=== PATIENT | male | born 1965 | race African-American/Black ===

== ENCOUNTER 2021-11-28 14:46 | Emergency (ER) | payer BC ==
[~2021-11-28] VITALS: Ht 177 cm; Wt 74.8 kg
[2021-11-28 15:27] LABS: BILIRUBIN,URINE NEGATIVE (NEGATIVE); CLARITY,URINE CLEAR; COLOR,URINE YELLOW; GLUCOSE, URINE (UA) NEGATIVE (NEGATIVE); KETONES,URINE NEGATIVE (NEGATIVE); LEUKOCYTE ESTERASE ,URINE NEGATIVE (NEGATIVE); NITRITE,URINE NEGATIVE (NEGATIVE); PH,URINE 5.5 (5-9); PROTEIN,URINE NEGATIVE (NEGATIVE)
[2021-11-28] MEDS ORDERED: cefTRIAXone 250 MG/2.5 ML ML IM ONE (15:30)
[2021-11-28] MEDS ORDERED: LIDOCAINE 1% INJ 20 ML VIAL INJ ONE (15:30)
[2021-11-28] MEDS ORDERED: AZITHROMYCIN 250 MG TAB (ZITHROMAX) PO ONE (15:30)
--- NOTE | 2021-11-28 15:38 | ED GU-Male ---
General Chief Complaint: - Reproductive Stated Complaint: UTI SYMPTOMS Nursing Triage Note: pt presents to ed with complaints of burning sensation with urination and an irritated area on penis- "possible scratch." for a couple days. Source: patient Exam Limitations: no limitations History of Present Illness Date Seen by Provider: Nov 28, 2021 Time Seen by Provider: 15:15 Initial Comments Patient is a 56-year-old male who presents to the emergency department today with a chief complaint of burning with urination and a "sore" on his penis. Patient states its been there for about 3 days. He did recently have sex, no condoms. He denies any testicle pain. No abdominal pain, nausea vomiting. No fevers or chills. He initially thought it was a "scratch" on the shaft of his penis just below the foreskin. No abnormal penile discharge. He has been putting a little Vaseline and antibiotic ointment on the area without much relief. All other review of systems reviewed and negative except as stated Timing/Duration: other (3d) Severity/Quality: mild Activities at Onset: none Prior Genitourinary Problems: none Associated Symptoms: dysuria Allergies and Home Medications Allergies Coded Allergies: No Known Drug Allergies (Unverified , 11/28/21) Patient Home Medication List Home Medication List Reviewed: Yes Review of Systems Review of Systems Constitutional: see HPI EENTM: no symptoms reported Respiratory: no symptoms reported Cardiovascular: no symptoms reported Gastrointestinal: no symptoms reported Genitourinary: burning, other ("sore" on penis) Musculoskeletal: no symptoms reported Skin: no symptoms reported All Other Systemes Reviewed Negative Unless Noted: Yes Past Hmmcvsp-Atyamo-Fngcpn Hx Patient Social History Tobacco Use?: No Substance use?: No Alcohol Use?: Yes Alcohol Frequency: Once in a while Pt feels they are or have been: No Past Medical History Surgery/Hospitalization HX: pt presents to ed with complaints of burning sensation with urination and an irritated area on penis- "possible scratch." for a couple days. Physical Exam Vital Signs Vital Signs - First Documented 11/28/21 15:16 Temp 36.6 Pulse 81 Resp 16 B/P (MAP) 156/98 (117) Pulse Ox 98 Capillary Refill : Less Than 3 Seconds Height, Weight, BMI Height: '" Weight: lbs. oz. kg; 23.00 BMI Method: General Appearance: WD/WN, no apparent distress HEENT: PERRL/EOMI Cardiovascular: regular rate, rhythm Respiratory: lungs clear, normal breath sounds, no respiratory distress, no accessory muscle use Male: normal genitalia, other (small round macular lesion under the foreskin volar aspect of the penis just proximal to the glans penis. no blistering or open ulceration noted - does not resemble herpetic lesion. slightly tender to palpation. no urethral discharge. no other lesions noted. no testicular swelling or tenderness.) Extremities: normal range of motion Neurologic/Psychiatric: alert, normal mood/affect, oriented x 3 Skin: normal color, warm/dry Progress/Results/Core Measures Suspected Sepsis SIRS Temperature: Pulse: 81 Respiratory Rate: 16 Blood Pressure 156 /98 Mean: 117 Results/Orders Lab Results Laboratory Tests Test 11/28/21 15:19 Range/Units My Orders Orders - AIDEE FRANCE MD Ua Culture If Indicated (11/28/21 15:22) Neis Dragan Dna Urine Test (11/28/21 15:30) Chlamydia Trachomatis Urine (11/28/21 15:30) Ceftriaxone (Rocephin) (11/28/21 15:30) Vital Signs/I&O 11/28/21 15:16 Temp 36.6 Pulse 81 Resp 16 B/P (MAP) 156/98 (117) Pulse Ox 98 Capillary Refill : Less Than 3 Seconds Blood Pressure Mean: 117 Progress Note : Time: 15:35 Progress Note 56-year-old male with a penile lesion and dysuria. Concern for STI. He has no inguinal lymphadenopathy. Only a single solitary red macular lesion on the volar aspect of the penis adjacent to the glans. Mildly tender to palpation. Could be a syphilitic lesion. Will recommend follow-up with his primary care doctor once he returns home to [place]. I am going to go ahead and treat him for STIs with 250 mg of Rocephin IM as well as 1 g of Zithromax p.o. Encourage safe sex practices. I advised him that we will contact him if his culture results are positive. If he notices any lumps in the groin or fever or new lesions he is instructed to seek further medical care for further treatment. He verbalized understanding. All questions are sought and answered. Departure Impression Primary Impression: Penile lesion Additional Impression: Urethritis Disposition: HOME, SELF-CARE Condition: Stable Departure-Patient Inst. Decision time for Depature: 15:36 Referrals: NO,LOCAL PHYSICIAN (PCP/Family) Primary Care Physician Patient Instructions: Urethritis Add. Discharge Instructions: If you develop any further "sores" or lumps in your groin especially with fevers, abdominal pain and nausea please go to your primary care doctor or seek further medical care for further treatment. You have been treated today with Rocephin which is an antibiotic to treat gonorrhea and azithromycin an antibiotic to treat chlamydia. These test results will be back in 3 or 4 days. We will contact you if you are positive for these infections. You will not need further treatment if these tests are positive. Please consider safe sex practices, always use a condom. Return to the emergency department for any new, concerning or emergent complaints or persistent symptoms. AIDEE FRANCE MD Nov 28, 2021 15:38
[2021-11-28] MEDS ORDERED: LIDOCAINE 1% INJ 10 ML VIAL ONE (16:07)
[2021-11-28 16:14] LABS: BACTERIA,URINE NEGATIVE /HPF; RBC,URINE 0-2 /HPF
[2021-11-28 16:39] VITALS: BP 156/98
== END 2021-11-28 16:39 | disposition home or self-care (01) ==
LOC: ER 14:50
DX: N34.2 Other urethritis (principal); N48.9 Disorder of penis, unspecified; Z28.310 Unvaccinated for COVID-19
CPT/HCPCS: 36415; 81000; 87491; 87591; 99284